=== PATIENT | female | born 1945 | race Caucasian/White ===

== ENCOUNTER 2022-06-13 07:04 | Day surgery (SDC) | payer MEDICARE, MEDICAID ==
[~2022-06-13] VITALS: Ht 149.9 cm; Wt 60.0 kg
[~2022-06-13 07:04] MED LIST: AMLO-257 PO; ATOR10TA PO; FLUT16SP NASAL; FURO20 PO; METO25 PO; PANT-31 PO; SEVE800T17 PO; SODIUM CHLORIDE 0.9% 1,000 ML IV ONE; SODIUM CHLORIDE 0.9% 1,000 ML ONE
[2022-06-13] MEDS ORDERED: PROPOFOL 1% 20 ML VIAL IVP ONE (07:05)
[2022-06-13] MEDS ORDERED: LIDOCAINE/PF 2% 5 ML SYRINGE IVP ONE (07:05)
[2022-06-13 07:29] LABS: COVID AG,FIA SOURCE NASOPHARYNGEAL
[2022-06-13] MEDS ORDERED: OXYGEN THERAPY IH SCH (09:45)
== END 2022-06-13 10:50 | disposition home or self-care (01) ==
LOC: SURGERY 07:04
PROVIDERS: ATTEND Specialist
DX: K29.60 Other gastritis without bleeding (principal); K26.9 Duodenal ulcer, unspecified as acute or chronic, without hemorrhage or perforation; E11.9 Type 2 diabetes mellitus without complications; D64.9 Anemia, unspecified; I12.0 Hypertensive chronic kidney disease with stage 5 chronic kidney disease or end stage renal disease; N18.6 End stage renal disease; K29.80 Duodenitis without bleeding; Z86.73 Personal history of transient ischemic attack (TIA), and cerebral infarction without residual deficits; Z79.899 Other long term (current) drug therapy; Z98.890 Other specified postprocedural states; Z20.822 Contact with and (suspected) exposure to COVID-19
CPT/HCPCS: 43239; 87426; C9803; C1769; J2704; J3490; J7030